=== PATIENT | male | born 1965 | race Caucasian/White ===

== ENCOUNTER 2023-04-27 12:48 | Emergency (ER) | payer SELFPAY ==
[~2023-04-27] VITALS: Ht 180.3 cm; Wt 80.0 kg
[2023-04-27 12:50] VITALS: BP 148/100; PULSE 74; RESP 16; TEMP 98; O2SAT 96
[2023-04-27] MEDS ORDERED: VIST25 MT (12:58)
== END 2023-04-27 13:16 | disposition home or self-care (01) ==
LOC: ER 12:48
DX: F11.23 Opioid dependence with withdrawal (principal); I10 Essential (primary) hypertension
CPT/HCPCS: 99283

== ENCOUNTER 2023-04-27 22:29 | Emergency (ER) | payer SELFPAY ==
[~2023-04-27] VITALS: Ht 182.9 cm; Wt 83.0 kg
[~2023-04-27 22:29] MED LIST: VIST25 MT
[2023-04-27 22:32] VITALS: BP 169/94; PULSE 72; RESP 18; TEMP 98.4; O2SAT 98
== END 2023-04-28 02:08 | disposition home or self-care (01) ==
LOC: ER 22:29
DX: F11.20 Opioid dependence, uncomplicated (principal); F11.23 Opioid dependence with withdrawal; I10 Essential (primary) hypertension
CPT/HCPCS: 99283